=== PATIENT | female | born 1950 | race Caucasian/White ===

== ENCOUNTER 2018-04-14 19:45 | Emergency (ER) | payer OTHER ==
[2018-04-14] MEDS: ALBUTEROL HFA 8 GM INHALER INH (20:50)
== END 2018-04-14 21:32 | disposition home or self-care (01) ==
LOC: FTE 19:45
DX: A49.9 Bacterial infection, unspecified (principal)
CPT/HCPCS: 94664; 99284-25

== ENCOUNTER 2019-04-01 21:47 | Emergency (ER) | payer OTHER ==
[2019-04-01] MEDS: ONDANSETRON 4 MG INJ IV (22:29)
[2019-04-01] MEDS: morphine 4 MG/ML VIAL IV (22:29)
[2019-04-01] MEDS: KETOROLAC 15 MG INJ IV (22:30)
== END 2019-04-02 01:30 | disposition home or self-care (01) ==
LOC: E/R 04-02 01:30
DX: M79.601 Pain in right arm (principal)
CPT/HCPCS: 73030; 73030-RT; 93005; 96374; 96375; 99284-25

== ENCOUNTER 2019-04-26 23:24 | Emergency (ER) | payer OTHER ==
[2019-04-26] MEDS: morphine 4 MG/ML VIAL IM (23:55)
== END 2019-04-27 01:41 | disposition home or self-care (01) ==
LOC: E/R 04-27 01:41
DX: M25.511 Pain in right shoulder (principal); I10 Essential (primary) hypertension
CPT/HCPCS: 73030; 73030-RT; 93971; 96372; 99285-25